=== PATIENT | male | born 1975 | race Caucasian/White ===

== ENCOUNTER 2017-03-26 10:59 | Emergency (ER) | payer MEDICAID, MEDICARE ==
--- NOTE | 2017-03-26 11:40 | EDM.PDOC ---
ED HPI GENERAL MEDICAL PROBLEM - General Chief Complaint: Respiratory Problem Stated Complaint: SOB Time Seen by Provider: 03/26/17 11:35 Source of Information: Reports: Patient History Limitations: Reports: No limitations - History of Present Illness INITIAL COMMENTS - FREE TEXT/NARRATIVE: HISTORY AND PHYSICAL: History of present illness: [Patient comes to the emergency room complaining of feeling that it's hard to breathe. Symptoms have been present for the past 2 weeks and are not improving. He has been coughing up thick, chunky yellow sputum. He denies any pain in his chest, and is not experiencing pain elsewhere. He continues to smoke 1 ppd, and has done so for the past 30 years. He has a cough, but he says that it isn't persistent. Has not had any fever or chills. No earaches, runny nose or sore throat. Appetite has been normal. No abdominal pain nausea or vomiting. He admits to arthritis to several joints of the upper and lower extremities. He follows regularly with Dr. Amado. Patient works at [employer] and has not been missing any work.] Review of systems: As per history of present illness and below otherwise all systems reviewed and negative. Past medical history: As per history of present illness and as reviewed below otherwise noncontributory. Surgical history: As per history of present illness and as reviewed below otherwise noncontributory. Social history: No reported history of drug or alcohol abuse. Family history: As per history of present illness and as reviewed below otherwise noncontributory. Physical exam: HEENT: Atraumatic, normocephalic. mucous membranes moist, throat clear, neck supple, nontender. Lungs: Lung sounds are coarse throughout. No wheezing crackles or rales. Heart: S1S2, regular, negative for clicks, rubs, or JVD. Abdomen: Bowel sounds are normoactive throughout. Soft, nondistended, nontender. Genitourinary: Deferred. Rectal: Deferred. Extremities: Atraumatic, no swelling or cyanosis. Neurovascular unremarkable. Neuro: Awake, alert, oriented. Motor and sensory unremarkable throughout. Exam nonfocal. Diagnostics: [Chest x-ray, EKG, CBC, CMP] Therapeutics: [DuoNeb] Impression: [COPD exacerbation] Plan: [Urged patient to followup with his primary care provider to discuss inhaler for COPD. Recommend Mucinex. He is prescribed Zithromax in the form of Z-Julio. Urged him to quit smoking. All his questions are answered and concerns are addressed.] Definitive disposition and diagnosis as appropriate pending reevaluation and review of above. - Related Data Allergies Allergy/AdvReac Type Severity Reaction Status Date / Time No Known Allergies Allergy Verified 11/04/14 23:02 Home Meds: Home Meds Azithromycin [IJP: Azithromycin] 250 mg PO ASDIRECTED #6 tab 03/26/17 [Rx] Ibuprofen [Advil] PRN 03/26/17 [History] Past Medical History - Past Health History Medical/Surgical History: Denies Medical/Surgical History Social & Family History - Tobacco Use Smoking Status *Q: Current Every Day Smoker Years of Tobacco use: 28 - Alcohol Use Days Per Week of Alcohol Use: 0 - Recreational Drug Use Recreational Drug Use: No ED ROS GENERAL - Review of Systems Review Of Systems: ROS reveals no pertinent complaints other than HPI. ED EXAM, GENERAL - Physical Exam Exam: See Below Course - Vital Signs Last Recorded V/S: Last Vital Signs Temp 98.1 F 03/26/17 14:39 Pulse 96 03/26/17 14:39 Resp 18 03/26/17 14:39 BP 116/79 03/26/17 14:39 Pulse Ox 96 03/26/17 14:39 - Orders/Labs/Meds Orders: Active Orders 24 hr Category Date Time Status EKG Documentation Completion [RC] STAT Care 03/26/17 11:38 Active RT Aerosol Therapy [RC] ASDIRECTED Care 03/26/17 12:35 Active Labs: Laboratory Tests 03/26/17 03/26/17 03/26/17 Range/Units 11:50 11:50 11:50 WBC 7.47 (4.0-11.0) K/uL RBC 4.62 (4.50-5.90) M/uL Hgb 14.0 (13.0-17.0) g/dL Hct 41.7 (38.0-50.0) % MCV 90.3 (80.0-98.0) fL MCH 30.3 (27.0-32.0) pg MCHC 33.6 (31.0-37.0) g/dL RDW Std Deviation 44.9 (28.0-62.0) fl RDW Coeff of Taj 14 (11.0-15.0) % Plt Count 254 (150-400) K/uL MPV 9.60 (7.40-12.00) fL Neut % (Auto) 60.7 (48.0-80.0) % Lymph % (Auto) 28.6 (16.0-40.0) % [place] % (Auto) 7.6 (0.0-15.0) % Eos % (Auto) 2.8 (0.0-7.0) % Baso % (Auto) 0.3 (0.0-1.5) % Neut # (Auto) 4.5 (1.4-5.7) K/uL Lymph # (Auto) 2.1 (0.6-2.4) K/uL [place] # (Auto) 0.6 (0.0-0.8) K/uL Eos # (Auto) 0.2 (0.0-0.7) K/uL Baso # (Auto) 0.0 (0.0-0.1) K/uL Nucleated RBC % 0.0 /100WBC Nucleated RBCs # 0 K/uL Sodium 139 (136-146) mmol/L Potassium 4.3 (3.5-5.1) mmol/L Chloride 109 (98-110) mmol/L Carbon Dioxide 22 (21-31) mmol/L BUN 7 (6.0-23.0) mg/dL Creatinine 1.2 (0.6-1.5) mg/dL Est Cr Clr Drug Dosing 78.93 mL/min Estimated GFR (MDRD) > 60.0 ml/min Glucose 105 (60-110) mg/dL Calcium 9.2 (8.8-10.8) mg/dL Total Bilirubin 0.3 (0.1-1.5) mg/dL AST 21 (5-40) IU/L ALT 18 (8-54) IU/L Alkaline Phosphatase 64 (40-150) Troponin I < 0.10 (0.0-0.29) NG/ML Total Protein 7.1 (6.0-8.0) g/dL Albumin 3.9 (3.5-5.0) g/dL Globulin 3.2 (2.0-3.5) g/dL Albumin/Globulin Ratio 1.2 L (1.3-2.8) Meds: Medications Discontinued Medications Generic Name Dose Route Start Last Admin Trade Name Elle PRN Reason Stop Dose Admin Albuterol/Ipratropium 3 ml 03/26/17 12:35 03/26/17 13:08 Duoneb 3.0-0.5 Mg/3 Ml NEB 03/26/17 12:36 3 ml ONETIME ONE Administration Departure - Departure Time of Disposition: 13:45 Disposition: Home, Self-Care 01 Condition: good Clinical Impression: COPD exacerbation - Discharge Information Prescriptions: Azithromycin [IJP: Azithromycin] 250 mg PO ASDIRECTED #6 tab Instructions: Chronic Obstructive Pulmonary Disease Exacerbation, [id number] Referrals: Reji Amado MD [Primary Care Provider] - Forms: ED Department Discharge Additional Instructions: The following information is given to patients seen in the emergency department who are being discharged to home. This information is to outline your options for follow-up care. We provide all patients seen in our emergency department with a follow-up referral. The need for follow-up, as well as the timing and circumstances, are variable depending upon the specifics of your emergency department visit. If you don't have a primary care physician on staff, we will provide you with a referral. We always advise you to contact your personal physician following an emergency department visit to inform them of the circumstance of the visit and for follow-up with them and/or the need for any referrals to a consulting specialist. The emergency department will also refer you to a specialist when appropriate. This referral assures that you have the opportunity for follow-up care with a specialist. All of these measure are taken in an effort to provide you with optimal care, which includes your follow-up. Under all circumstances we always encourage you to contact your private physician who remains a resource for coordinating your care. When calling for follow-up care, please make the office aware that this follow-up is from your recent emergency room visit. If for any reason you are refused follow-up, please contact the [facility] emergency department at and asked to speak to the emergency department charge nurse. [address] [address] All up with her local primary care provider at the clinic listed above in 48-72 hours. Taking azithromycin as prescribed. This prescription has been sent to your pharmacy. Take Mucinex which is available [id number]. This will thin mucus and chest secretions. Quit smoking. Return to ER as needed and as discussed. - My Orders Last 24 Hours: My Active Orders 03/26/17 11:38 EKG Documentation Completion [RC] STAT 03/26/17 12:35 RT Aerosol Therapy [RC] ASDIRECTED - Assessment/Plan Last 24 Hours: My Active Orders 03/26/17 11:38 EKG Documentation Completion [RC] STAT 03/26/17 12:35 RT Aerosol Therapy [RC] ASDIRECTED
--- NOTE | 2017-03-26 12:16 | CR ---
EXAMINATION: Two-view chest (PA and Lateral views). HISTORY: Shortness of breath. FINDINGS: The trachea is midline. The cardiomediastinal silhouette is within normal limits. No pulmonary infil trates, effusions or pneumothorax. Osseous structures appear unremarkable. IMPRESSION: No acute cardiopulmonary process.
[2017-03-26 12:20] LABS: CHLORIDE,CL 109 mmol/L (98-110); SODIUM,NA 139 mmol/L (136-146)
[2017-03-26] MEDS ORDERED: Albuterol/Ipratropium 3.0-0.5 MG/3 ML Neb Soln NEB ONE (12:35)
[2017-03-26 14:41] VITALS: BP 116/79
== END 2017-03-26 14:20 | disposition home or self-care (01) ==
LOC: MW.ED 10:59
DX: J44.1 Chronic obstructive pulmonary disease with (acute) exacerbation (principal); F17.200 Nicotine dependence, unspecified, uncomplicated
CPT/HCPCS: 71020; 71020-26; 80053; 84484; 85025; 93005; 94664; 99284; 99285-25

== ENCOUNTER 2019-05-28 11:09 | Emergency (ER) | payer OTHER ==
[2019-05-28] MEDS ORDERED: Diphtheria,Pertussis(Acell),Tetanus Vaccine 0.5 ML Syringe IM ONE (11:33)
--- NOTE | 2019-05-28 11:54 | EDM.PDOC ---
ED HPI GENERAL MEDICAL PROBLEM - General Chief Complaint: Laceration Stated Complaint: CUT RIGHT HAND AT WORK Time Seen by Provider: 05/28/19 11:53 - History of Present Illness INITIAL COMMENTS - FREE TEXT/NARRATIVE: 43 y/o male here for right hand laceration. According to patient he was at work picking up some broken glass from a window when he slipped and he had glass cut him on his right 2nd digit MCP joint area. Bleeding was kept under control. Able to move fingers and make a fist. No lacerations anywhere else on body. - Related Data Allergies Allergy/AdvReac Type Severity Reaction Status Date / Time No Known Allergies Allergy Verified 11/04/14 23:02 Home Meds: Home Meds Azithromycin [IJP: Azithromycin] 250 mg PO ASDIRECTED #6 tab 03/26/17 [Rx] Ibuprofen [Advil] PRN 03/26/17 [History] Past Medical History - Past Health History Medical/Surgical History: Denies Medical/Surgical History HEENT History: Reports: None Cardiovascular History: Reports: SOB on Exertion Respiratory History: Reports: SOB Gastrointestinal History: Reports: None Genitourinary History: Reports: None Musculoskeletal History: Reports: Arthritis Neurological History: Reports: None Psychiatric History: Reports: None Endocrine/Metabolic History: Reports: None Hematologic History: Reports: None Immunologic History: Reports: None Oncologic (Cancer) History: Reports: None Dermatologic History: Reports: None - Past Surgical History HEENT Surgical History: Reports: None Respiratory Surgical History: Reports: None GI Surgical History: Reports: None Male Surgical History: Reports: None Endocrine Surgical History: Reports: None Neurological Surgical History: Reports: None Musculoskeletal Surgical History: Reports: None Dermatological Surgical History: Reports: None Social & Family History - Family History Family Medical History: Noncontributory Respiratory: Reports: Asthma - Tobacco Use Smoking Status *Q: Current Every Day Smoker Years of Tobacco use: 28 Packs/Tins Daily: 0.5 - Recreational Drug Use Recreational Drug Use: No ED ROS GENERAL - Review of Systems Review Of Systems: ROS reveals no pertinent complaints other than HPI. ED EXAM, SKIN/RASH Exam: See Below General Appearance: Alert, WD/WN, No Apparent Distress Extremities: Other (right hand-there is a 1 inch linear laceration on the 2nd digit MCP joint area. Wound looks clean. No glass in wound. Able to flex fingers and make a fist. Sensation intact.) Course - Vital Signs Text/Narrative:: cleaned wound. administered lidocaine 1% for anesthesia. Placed 3 sutures Ethilon 4-0. No bleeding. Last Recorded V/S: Last Vital Signs Temp 36.2 C 05/28/19 11:25 Pulse 87 05/28/19 11:25 Resp 16 05/28/19 11:25 BP 144/87 H 05/28/19 11:25 Pulse Ox 96 05/28/19 11:25 - Orders/Labs/Meds Orders: Active Orders 24 hr Category Date Time Status Vaccines to be Administered [RC] PER UNIT ROUTINE Care 05/28/19 11:33 Active Meds: Medications Discontinued Medications Generic Name Dose Route Start Last Admin Trade Name Freq PRN Reason Stop Dose Admin Diphtheria/Tetanus/Acell Pertussis 0.5 ml 05/28/19 11:33 05/28/19 11:40 Adacel IM 05/28/19 11:34 0.5 ml .ONCE ONE Administration Lidocaine HCl Confirm 05/28/19 11:31 05/28/19 11:41 Xylocaine-Mpf 1% Administered 05/28/19 11:32 Not Given Dose 5 mls @ as directed .ROUTE .STK-MED ONE Lidocaine HCl 5 ml 05/28/19 11:33 05/28/19 11:40 Xylocaine-Mpf 1% INJECT 05/28/19 11:34 5 ml ONETIME ONE Administration Departure - Departure Time of Disposition: 11:53 Disposition: Home, Self-Care 01 Clinical Impression: Laceration - Discharge Information *PRESCRIPTION DRUG MONITORING PROGRAM REVIEWED*: Not Applicable *COPY OF PRESCRIPTION DRUG MONITORING REPORT IN PATIENT ROMI: Not Applicable Instructions: Laceration Care, Adult, [id number], Stitches, [place], or Adhesive Wound Closure, [id number] Referrals: PCP,None [Primary Care Provider] - Forms: ED Department Discharge Additional Instructions: The following information is given to patients seen in the emergency department who are being discharged to home. This information is to outline your options for follow-up care. We provide all patients seen in our emergency department with a follow-up referral. The need for follow-up, as well as the timing and circumstances, are variable depending upon the specifics of your emergency department visit. If you don't have a primary care physician on staff, we will provide you with a referral. We always advise you to contact your personal physician following an emergency department visit to inform them of the circumstance of the visit and for follow-up with them and/or the need for any referrals to a consulting specialist. The emergency department will also refer you to a specialist when appropriate. This referral assures that you have the opportunity for follow-up care with a specialist. All of these measure are taken in an effort to provide you with optimal care, which includes your follow-up. Under all circumstances we always encourage you to contact your private physician who remains a resource for coordinating your care. When calling for follow-up care, please make the office aware that this follow-up is from your recent emergency room visit. If for any reason you are refused follow-up, please contact the [facility] Emergency Department at and asked to speak to the emergency department charge nurse. Return in 7 days for suture removal. Can use tylenol, ibuprofen for pain control. - My Orders Last 24 Hours: My Active Orders 05/28/19 11:33 Vaccines to be Administered [RC] PER UNIT ROUTINE - Assessment/Plan Last 24 Hours: My Active Orders 05/28/19 11:33 Vaccines to be Administered [RC] PER UNIT ROUTINE
[2019-05-28] MEDS ORDERED: Bacitracin Oint 1 GM U/D Packet TOP ONE (11:56)
[2019-05-28 12:05] VITALS: BP 142/81
== END 2019-05-28 12:03 | disposition home or self-care (01) ==
LOC: MW.ED 11:09
DX: S61.411A Laceration without foreign body of right hand, initial encounter (principal); F17.210 Nicotine dependence, cigarettes, uncomplicated; Z23 Encounter for immunization; W26.8XXA Contact with other sharp object(s), not elsewhere classified, initial encounter
CPT/HCPCS: 12001; 90471; 90715; 99282; J2001